=== PATIENT | male | born 1990 | race African-American/Black ===

== ENCOUNTER 2016-08-10 23:43 | Emergency (ER) | payer SELFPAY ==
[~2016-08-10] VITALS: Ht 182.9 cm; Wt 187.5 kg
[2016-08-10 23:49] VITALS: Ht 182.9 cm; Wt 187.5 kg
[2016-08-11 00:40] VITALS: BP 170/99; PULSE 99; RESP 24; TEMP 98
[2016-08-11] MEDS ORDERED: HYDROCODONE/APAP (10/325) TAB PO ONE (01:00)
[2016-08-11 01:02] LABS: ADD UMIC YES; URINE BILIRUBIN (Dip) NEGATIVE (NEGATIVE); URINE BLOOD (Dip) 3+ (NEGATIVE); URINE COLOR YELLOW (YELLOW); URINE GLUCOSE (Dip) NEGATIVE (NEGATIVE); URINE KETONES (Dip) NEGATIVE (NEGATIVE); URINE LEUKOCYTE ESTERASE (Dip) NEGATIVE (NEGATIVE); URINE NITRITE (Dip) NEGATIVE (NEGATIVE); URINE TOTAL PROTEIN (Dip) 1+ (NEGATIVE); URINE UROBILINOGEN (Dip) 0.2 E.U./dL (0.1-1.0)
[2016-08-11 01:15] LABS: MUCUS,URINE FEW; URINE RBCS >50 /HPF (0)
--- NOTE | 2016-08-11 01:43 | ERD ---
ER Documentation Chief Complaint Date/Time DATE: 08/11/16 TIME: 01:40 Chief Complaint cough x 2 weeks, back pain, hypertension HPI Patient is a 26-year-old male who presents with sudden onset, moderate, cramping pain to the left lower back that started approximately 6 hours ago. He denies heavy lifting or certain movements at the onset of symptoms. He denies abdominal pain, radiation to the testicle or groin. He denies hematuria or dysuria. He denies vomiting or fever. He denies urinary incontinence, leg weakness or numbness. He also reports a chronic, nonproductive cough for 2 weeks. He does not report any significant dyspnea. He reports that he has gained over 100 pounds in the last year due to lifestyle changes. ROS All systems reviewed and are negative except as per history of present illness. Medications Home Meds Active Scripts Amlodipine Besylate* (Amlodipine Besylate*) 5 Mg Tablet, 5 MG PO DAILY, #30 TAB Prov:LINDSEY STOUT MD 08/11/16 Acetaminophen* (Tylophen*) 500 Mg Capsule, 2 CAP PO Q8H Y for PAIN AND OR ELEVATED TEMP, #30 CAP Prov:LINDSEY STOUT MD 08/11/16 Cyclobenzaprine Hcl* (Cyclobenzaprine Hcl*) 10 Mg Tablet, 10 MG PO TID, #30 TAB Prov:LINDSEY STOUT MD 08/11/16 Allergies Allergies: Coded Allergies: No Known Allergy (Unverified , 08/10/16) PMhx/Soc Past medical history: None Past surgical history: None Social history: Smokes cannabis, denies alcohol or tobacco History of Surgery: No Anesthesia Reaction: No Hx Neurological Disorder: No Hx Respiratory Disorders: No Hx Cardiac Disorders: No Hx Psychiatric Problems: No Hx Miscellaneous Medical Probl: No Hx Alcohol Use: Yes (OCCASSIONALLY) Hx Substance Use: Yes Hx Tobacco Use: Yes Smoking Status: Former smoker FmHx Family History: No coronary disease, No diabetes Physical Exam Vitals Vital Signs Date Time Temp Pulse Resp B/P Pulse Ox O2 Delivery O2 Flow Rate FiO2 08/11/16 00:40 98.0 99 24 170/99 94 Room Air 08/10/16 23:49 97.8 98 20 212/103 95 Physical Exam Const: Alert, no acute distress Head: Atraumatic Eyes: Normal Conjunctiva, no pallor, no icterus ENT: Normal External Ears, Nose and Mouth. Neck: Full range of motion..~ No meningismus. Resp: Clear to auscultation bilaterally Cardio: Regular rate and rhythm, no murmurs Abd: Morbidly obese soft, non tender, non distended. Skin: No petechiae or rashes Back: No midline tenderness. Left lumbar paraspinal muscle tenderness, no CVA tenderness Ext: No cyanosis, 1+ pitting edema bilateral shins Neur: Awake and alert, strength and sensation intact in bilateral lower extremities. Psych: Normal Mood and Affect Results 24 hrs Laboratory Tests Test 08/11/16 00:40 Urine Color YELLOW Urine Clarity CLEAR Urine pH 5.5 Urine Specific [place] >=1.030 Urine Ketones NEGATIVE Urine Nitrite NEGATIVE Urine Bilirubin NEGATIVE Urine Urobilinogen 0.2 E.U./dL Urine Leukocyte Esterase NEGATIVE Urine Microscopic RBC >50/HPF Urine Microscopic WBC 0-2/HPF Urine Mucus FEW Urine Hemoglobin 3+ Urine Glucose NEGATIVE% Urine Total Protein 1+ Current Medications Medications (Trade) Dose Ordered Sig/Radha Route PRN Reason Start Time Stop Time Status Last Admin Dose Admin Acetaminophen/ Hydrocodone Bitart ([place] (10/325)) 1 tab ONCE ONCE PO 08/11/16 01:00 08/11/16 01:01 DC 08/11/16 00:52 Cyclobenzaprine HCl (Flexeril) 10 mg ONCE ONCE PO 08/11/16 02:00 08/11/16 02:01 DC 08/11/16 01:44 Procedures/MDM MDM: Patient is a 26-year-old male who presents with atraumatic left lumbar pain. He has paraspinal muscle tenderness on exam. He is also incidentally found to have hematuria, but denies dysuria. I plan to get a noncontrast CT scan of the abdomen to look for kidney stone, but the patient is too heavy for the CT scanner. Therefore, an ultrasound was performed, and shows no signs of hydronephrosis. Although clinically I believe the patient is more likely to have muscle spasm, I cannot exclude a small nonobstructing stone. There is no abdominal pain or tenderness, no symptoms to suggest aortic pathology. There are no signs of UTI on UA. The patient is noted to have elevated blood pressure , and likely has underlying essential hypertension related to his obesity. I will discharge the patient with a prescription for Flexeril and Tylenol for musculoskeletal back pain. I will give him a prescription for amlodipine for new onset hypertension. Advised him that I cannot fully exclude the possibility of a kidney stone, and that he should follow-up with his primary doctor and consider referral to urology if he has persistent symptoms. I also advised that he follow-up for blood pressure recheck in the next 2-3 days. The patient was counseled on weight loss and avoiding heavy lifting. There are no neurologic signs associated with low back pain and no midline tenderness. Departure Diagnosis: Primary Impression: Lumbar spine strain Encounter type: initial encounter Qualified Code: S39.012A - Lumbar spine strain, initial encounter Additional Impressions: Hematuria Hypertension Hypertension type: essential hypertension Qualified Code: I10 - Essential hypertension Morbid obesity Obesity type: unspecified obesity type Qualified Code: E66.01 - Morbid obesity, unspecified obesity type Condition: LINDSEY Adan MD August 11, 2016 01:42
[2016-08-11] MEDS ORDERED: CYCLOBENZAPRINE 10 MG TAB PO ONE (02:00)
--- NOTE | 2016-08-11 02:34 | RADRPT ---
PROCEDURE: Chest. CLINICAL INDICATION: Chest pain. TECHNIQUE: Single frontal view of the chest was obtained. COMPARISON: None. FINDINGS: The cardiac silhouette is magnified. The aortic arch is unremarkable. There is no focal consolidat ion, vascular congestion or pleural effusion. There is no pneumothorax. IMPRESSION: No evidence for active cardiopulmonary disease. .John Worthy MD, MD Date Time Electronically viewed and signed by .John Worthy MD, MD on 08/11/2016 02:33 .T/
--- NOTE | 2016-08-11 02:45 | RADRPT ---
PROCEDURE: US Renal CLINICAL INDICATION: Pain TECHNIQUE: Multiple sonographic images of the kidneys and bladder were obtained. Evaluation of th e kidneys and bladder was performed as well with turner scale and color and Doppler evaluation using a curved array transducer. The images were reviewed on a high-resolution PACS workstation. COMPARISON: No prior studies are available for comparison. FINDINGS: Study limited by patient's body habitus. The right kidney measures 12.3 cm. The left kidney measure s 12.5 cm. Renal cortical echogenicity is within normal limits. There is no mass, calculus, or obs tructive uropathy. No perinephric fluid collection is seen. The bladder is unremarkable.. IMPRESSION: 1. Unremarkable renal ultrasound. RPTAT: HMVK .Abdias Pretty MD, Date Time Electronically viewed and signed by .Abdias Pretty MD, on 08/11/2016 02:44 .K/
[2016-08-11] MEDS ORDERED: ACET500C5 PO (03:10)
[2016-08-11] MEDS ORDERED: CYCL-319 PO (03:10)
[2016-08-11] MEDS ORDERED: AMLO-145 PO (03:10)
== END 2016-08-11 03:17 | disposition home or self-care (01) ==
LOC: E/R 23:43
DX: S39.012A Strain of muscle, fascia and tendon of lower back, initial encounter (principal); I10 Essential (primary) hypertension; E66.01 Morbid (severe) obesity due to excess calories; R31.9 Hematuria, unspecified; X58.XXXA Exposure to other specified factors, initial encounter; Y92.9 Unspecified place or not applicable; Z68.43 Body mass index [BMI] 50.0-59.9, adult; Z87.891 Personal history of nicotine dependence
CPT/HCPCS: 71010; 76775; 81001; 81003